=== PATIENT | female | born 1950 | race Caucasian/White ===

== ENCOUNTER 2016-12-26 08:13 | Inpatient (IN) | payer BC ==
[~2016-12-26] VITALS: Ht 157.5 cm; Wt 54.8 kg
--- NOTE | 2016-12-26 09:02 | RADRPT ---
PROCEDURE: US Lower extremity Venous. CLINICAL INDICATION: Left leg edema TECHNIQUE: Multiple sonographic images of the left lower extremity deep venous system was obtained utilizing grayscale, color-flow, compressive sonography and doppler imaging with augmentation. The images were reviewed on a PACS workstation. COMPARISON: None. FINDINGS: There is normal compressibility and flow within the left common femoral, femoral veins. The left popliteal vein, posterior tibial vein and peroneal vein are not compressible, consistent wi th DVT. RPTAT: AA IMPRESSION: DVT in the left popliteal vein and left calf veins. A call report was made and the findings discussed with Dr. Murcia at 12/26/2016 8:58:57 AM. .Oscar Kingsley MD, MD Date Time Electronically viewed and signed by .Oscar Kingsley MD, on 12/26/2016 09:01 .S/
[2016-12-26 10:52] VITALS: Ht 157.5 cm; Wt 54.8 kg
[2016-12-26 11:00] VITALS: BP 141/68; PULSE 87; RESP 20
[2016-12-26] MEDS ORDERED: ACETAMINOPHEN 325 MG TAB PO PRN (11:30)
[2016-12-26 12:27] LABS: BASOPHILS % 0.3 % (0.0-2.0); EOSINOPHILS % 0.3 % (0.0-7.0); HEMATOCRIT 37.7 % (37.0-47.0); HEMOGLOBIN 12.6 g/dl (12.0-16.0); LYMPHOCYTES # 1.3 10^3/ul (0.8-2.9); LYMPHOCYTES % 20.3 % (15.0-51.0); MEAN CORPUSCULAR HEMOGLOBIN 29.4 pg (29.0-33.0); MEAN CORPUSCULAR HGB CONC 33.4 g/dl (32.0-37.0); MEAN CORPUSCULAR VOLUME 87.9 fl (82.0-101.0); MEAN PLATELET VOLUME 9.2 fl (7.4-10.4); MONOCYTE # 0.6 10^3/ul (0.3-0.9); MONOCYTES % 8.5 % (0.0-11.0); NEUTROPHIL # 4.6 10^3/ul (1.6-7.5); NEUTROPHILS % 70.3 % (39.0-77.0); PLATELET COUNT 226 10^3/UL (140-415); RED BLOOD COUNT 4.29 10^6/ul (4.20-5.40); RED CELL DISTRIBUTION WIDTH 12.2 % (11.5-14.5); WHITE BLOOD COUNT 6.6 10^3/ul (4.8-10.8)
[2016-12-26 12:42] LABS: PROTIME 13.2 Sec (12.2-14.2)
[2016-12-26 12:43] LABS: PARTIAL THROMBOPLASTIN TIME 23.8 Sec (25.0-35.0)
[2016-12-26 12:51] LABS: ALBUMIN 4.1 g/dl (3.3-4.9); ALBUMIN/GLOBULIN RATIO 1.28; BILIRUBIN,INDIRECT 0.2 mg/dl (0-1.1); BILIRUBIN,TOTAL 0.2 mg/dl (0.2-1.3); CALCIUM 9.5 mg/dl (8.4-10.2); CREATININE 0.68 mg/dl (0.44-1.00); POTASSIUM 3.9 mmol/L (3.5-5.1); TOTAL PROTEIN 7.3 g/dl (6.1-8.1)
[2016-12-26] MEDS: ENOXAPARIN 60 MG/0.6 ML SYG SC SCH ×2 (12:54→22:04)
--- NOTE | 2016-12-26 14:06 | RADRPT ---
Vent Rate: 83 bpm RR Interval: 0 msec MS Interval: 154 msec QRS Duration: 88 msec QT Interval: 366 msec QTC Interval: 430 msec P-R-T [place]: 42 - 69 - 59 degrees Normal sinus rhythm Normal ECG Electronically Signed By: Renny Juarez [id number]
[2016-12-26 15:00] VITALS: BP 111/65; RESP 20
[2016-12-26] MEDS ORDERED: GLUCAGON 1 MG INJ IM PRN (15:30)
[2016-12-26] MEDS ORDERED: DEXTROSE 50% 50 ML SYRINGE IV PRN ×2 (15:30)
[2016-12-26] MEDS ORDERED: GLUCOSE GEL 15 GRAM TUBE BUCCAL PRN (15:30)
[2016-12-26] MEDS ORDERED: GLUCOSE GEL 15 GRAM TUBE PO PRN ×2 (15:30)
[2016-12-26] MEDS ORDERED: FENO160T13 PO (15:46)
[2016-12-26] MEDS ORDERED: WARFARIN 5 MG TAB PO ONE (17:00)
[2016-12-26] MEDS: INSULIN ASPART [NOVOLOG] 3 ML PEN SC SCH ×2 (17:44→20:36)
[2016-12-26 20:00] VITALS: BP 125/57; RESP 20
--- NOTE | 2016-12-26 21:28 | HP ---
DATE OF ADMISSION: 12/26/2016 CHIEF COMPLAINT: Swelling in the left leg for 8 days. HISTORY OF PRESENT ILLNESS: The patient is a 66-year-old female, who complains of swelling in the left leg for 8 days, somewhat painful from the knee down, unchanged. Pain is worse in the morning and improves somewhat with ambulation. Edema does not change during the day. The patient denies any redness, chest pain, shortness of breath, fever, chills, or night sweats. The patient has had no specific trauma. No prolonged immobilizations. The patient has no history of DVT. The patient had a duplex scan this morning, which showed DVT in the left lower extremity. The patient is being admitted for further management. PAST MEDICAL HISTORY: Hyperlipidemia, diabetes, anxiety. PAST SURGICAL HISTORY: Tubal ligation, hemorrhoids. MEDICATIONS: Fenofibrate 160 mg p.o. daily. ALLERGIES: NO KNOWN DRUG ALLERGIES. SOCIAL HISTORY: The patient denies any tobacco or alcohol use. She is and works in housekeeping at [employer]. FAMILY HISTORY: The patient's father at 80 from kidney failure. Her mother at 88 from stroke. The patient had 5 brothers, 1 at 46 from an [place], 1 at 26, he was killed, 3 brothers are alive and well. The patient has 2 sisters, 1 with breast cancer, 1 with hypertension. Has 2 daughters who are alive and well. REVIEW OF SYSTEMS: GENERAL: Patient denies any fever, chills, night sweats, or other general complaints. HEENT: Patient denies any headache, congestion, rhinorrhea, sore throat, or other HEENT complaints. RESPIRATORY: Patient denies any cough, wheeze, shortness of breath, or other respiratory complaints. CARDIOVASCULAR: Patient denies any chest pain, palpitations, dizziness, other cardiovascular symptoms. GASTROINTESTINAL: Patient denies any abdominal pain, nausea, vomiting, bright red blood per rectum, melena, or other GI symptoms. GENITOURINARY: Patient denies any dysuria, frequency, or other symptoms. NEUROLOGIC: Patient denies any numbness, tingling, weakness, or other focal neurologic symptoms. PHYSICAL EXAMINATION: GENERAL: Patient is a well-developed, well-nourished, female, in no acute distress. She appears nontoxic. HEENT: Normocephalic, atraumatic. Sclera anicteric. Oropharynx is clear. NECK: Neck is supple. No adenopathy, no thyromegaly, no bruits. LUNGS: Clear to auscultation. CARDIAC: Regular rate and rhythm. ABDOMEN: Bowel sounds are present. Abdomen is soft, nontender, nondistended. EXTREMITIES: Without cyanosis or clubbing. There is mild pitting edema on the left lower extremity. No erythema. NEUROLOGIC: Patient is alert and oriented times 3 with no focal neurologic findings. LABORATORY DATA: Duplex scan of left lower extremity showed DVT in the left popliteal and calf veins. EKG shows sinus rhythm with no acute changes. White count 6.6, hemoglobin 12.6, platelets 226. Sodium 141, potassium 3.9, chloride 105, bicarbonate 27, BUN 14, creatinine 0.68, glucose 226, AST 22, ALT 27, INR 1.0, PTT 23.8. IMPRESSION: 1. Left lower extremity deep vein thrombosis. 2. Diabetes. 3. Hyperlipidemia. PLAN: Admit to med-surg, start subcutaneous Lovenox, and concurrent Coumadin, sliding scale insulin with a diabetic diet, hold fenofibrate, monitor labs. Dictated By: Otto Moreno /fnt/bjc /Document#: [id number] TAMIR
[2016-12-27 02:00] VITALS: BP 101/59; RESP 20
[2016-12-27] MEDS: ACCU-CHEK XX SCH (02:00)
[2016-12-27 05:37] LABS: BASOPHILS % 0.4 % (0.0-2.0); EOSINOPHILS # 0.1 10^3/ul (0.0-0.5); EOSINOPHILS % 0.7 % (0.0-7.0); HEMATOCRIT 38.4 % (37.0-47.0); HEMOGLOBIN 12.9 g/dl (12.0-16.0); LYMPHOCYTES # 2.4 10^3/ul (0.8-2.9); LYMPHOCYTES % 33.9 % (15.0-51.0); MEAN CORPUSCULAR HEMOGLOBIN 29.9 pg (29.0-33.0); MEAN CORPUSCULAR HGB CONC 33.6 g/dl (32.0-37.0); MEAN CORPUSCULAR VOLUME 88.9 fl (82.0-101.0); MEAN PLATELET VOLUME 9.2 fl (7.4-10.4); MONOCYTE # 0.8 10^3/ul (0.3-0.9); MONOCYTES % 11.4 % (0.0-11.0); NEUTROPHIL # 3.9 10^3/ul (1.6-7.5); NEUTROPHILS % 53.5 % (39.0-77.0); PLATELET COUNT 242 10^3/UL (140-415); RED BLOOD COUNT 4.32 10^6/ul (4.20-5.40); WHITE BLOOD COUNT 7.2 10^3/ul (4.8-10.8)
[2016-12-27 05:55] LABS: INR 1.02; PROTIME 13.4 Sec (12.2-14.2)
[2016-12-27 06:19] LABS: CHOL/HDL RATIO 4.5 RATIO; CREATININE 0.76 mg/dl (0.44-1.00)
[2016-12-27 06:20] LABS: CALCIUM 9.1 mg/dl (8.4-10.2)
[2016-12-27] MEDS: INSULIN ASPART [NOVOLOG] 3 ML PEN SC SCH ×4 (08:00→21:00)
[2016-12-27 08:01] VITALS: BP 113/59; RESP 16
[2016-12-27] MEDS: ENOXAPARIN 60 MG/0.6 ML SYG SC SCH ×2 (08:38→21:22)
--- NOTE | 2016-12-27 12:22 | PN ---
Date/Time of Note Date/Time of Note DATE: 12/27/16 TIME: 12:16 Assessment/Plan VTE Prophylaxis VTE Prophylaxis Intervention: LMWH Lines/Catheters IV Catheter Type (from Nrs): Saline Lock Assessment/Plan Assessment/Plan A: LLE DVT DM hyperlipidemia P: coumadin 5mg today cont current rx monitor labs, adjust coumadin based on INR Subjective 24 Hr Interval Summary Free Text/Dictation Pt doing well. Decreased leg pain, no cp, sob, bleeding probs. Swelling in lt leg decreasing. Daughter and grandson at bedside. All questions answered. Exam/Review of Systems Vital Signs Vitals Vital Signs Date Time Temp Pulse Resp B/P Pulse Ox O2 Delivery O2 Flow Rate FiO2 12/27/16 08:01 98.1 78 16 113/59 97 Intake and Output 12/26/16 12/26/16 12/27/16 15:00 23:00 07:00 Intake Total 450 ml 850 ml Balance 450 ml 850 ml Exam gen- nad, nontoxic. lungs- CTA. heart- RRR. abd- +BS, soft, nontender. ext- trace edema LLE, varicose veins. Results Result Diagram: 12/27/16 0441 12/27/16 0441 Results 24 hrs Laboratory Tests Test 12/26/16 17:41 12/26/16 20:33 12/27/16 04:41 12/27/16 08:34 Bedside Glucose 133 142 139 White Blood Count 7.2 Red Blood Count 4.32 Hemoglobin 12.9 Hematocrit 38.4 Mean Corpuscular Volume 88.9 Mean Corpuscular Hemoglobin 29.9 Mean Corpuscular Hemoglobin Concent 33.6 Red Cell Distribution Width 12.0 Platelet Count 242 Mean Platelet Volume 9.2 Neutrophils % 53.5 Lymphocytes % 33.9 Monocytes % 11.4 H Eosinophils % 0.7 Basophils % 0.4 Nucleated Red Blood Cells % 0.0 Neutrophils # 3.9 Lymphocytes # 2.4 Monocytes # 0.8 Eosinophils # 0.1 Basophils # 0.0 Nucleated Red Blood Cells # 0.0 Prothrombin Time 13.4 Prothrombin Time Ratio 1.0 INR International Normalized Ratio 1.02 Sodium Level 141 Potassium Level 4.0 Chloride Level 108 Carbon Dioxide Level 28 Anion Gap 9 Blood Urea Nitrogen 20 Creatinine 0.76 Glucose Level 145 # Hemoglobin A1c 7.1 H Calcium Level 9.1 Triglycerides Level 267 H Cholesterol Level 151 LDL Cholesterol, Calculated 65 HDL Cholesterol 33 L Cholesterol/HDL Ratio 4.5 Test 12/27/16 11:51 Bedside Glucose 132 Medications Medications Current Medications Enoxaparin Sodium (Lovenox) 55 mg Q12 SC Last administered on 12/27/16t 08:38; Admin Dose 55 MG; Start 12/26/16 at 12:00 Acetaminophen (Tylenol Tab) 650 mg Q6H PRN PO PAIN AND OR ELEVATED TEMP; Start 12/26/16 at 11:30 Diagnostic Test (Pha) (Accu-Chek) 1 ea 02 XX ; Start 12/27/16 at 02:00 Miscellaneous Information 1 ea NOTE XX ; Start 12/26/16 at 15:30 Glucose (Glutose) 15 gm Q15M PRN PO DECREASED GLUCOSE; Start 12/26/16 at 15:30 Glucose (Glutose) 22.5 gm Q15M PRN PO DECREASED GLUCOSE; Start 12/26/16 at 15: 30 Dextrose (D50w Syringe) 25 ml Q15M PRN IV DECREASED GLUCOSE; Start 12/26/16 at 15:30 Dextrose (D50w Syringe) 50 ml Q15M PRN IV DECREASED GLUCOSE; Start 12/26/16 at 15:30 Glucagon (Glucagen) 1 mg Q15M PRN IM DECREASED GLUCOSE; Start 12/26/16 at 15:30 Glucose (Glutose) 15 gm Q15M PRN BUCCAL DECREASED GLUCOSE; Start 12/26/16 at 15 :30 Warfarin Sodium (Coumadin) 5 mg ONCE@17 ONCE PO ; Start 12/27/16 at 17:00; Stop 12/27/16 at 17:01 KONRAD ALTAMIRANO MD Dec 27, 2016 12:21
[2016-12-27 14:20] VITALS: BP 112/58; RESP 16
[2016-12-27] MEDS ORDERED: WARFARIN 5 MG TAB PO ONE (17:00)
[2016-12-27 20:45] VITALS: BP 129/62; RESP 16
[2016-12-28] MEDS: ACCU-CHEK XX SCH (01:47)
[2016-12-28 02:45] VITALS: BP 113/60; RESP 18
[2016-12-28 05:31] LABS: BASOPHILS % 0.4 % (0.0-2.0); EOSINOPHILS # 0.1 10^3/ul (0.0-0.5); EOSINOPHILS % 0.8 % (0.0-7.0); HEMATOCRIT 37.7 % (37.0-47.0); HEMOGLOBIN 12.7 g/dl (12.0-16.0); LYMPHOCYTES # 2.8 10^3/ul (0.8-2.9); LYMPHOCYTES % 39.1 % (15.0-51.0); MEAN CORPUSCULAR HEMOGLOBIN 29.7 pg (29.0-33.0); MEAN CORPUSCULAR HGB CONC 33.7 g/dl (32.0-37.0); MEAN CORPUSCULAR VOLUME 88.1 fl (82.0-101.0); MEAN PLATELET VOLUME 9.2 fl (7.4-10.4); MONOCYTE # 0.7 10^3/ul (0.3-0.9); NEUTROPHIL # 3.5 10^3/ul (1.6-7.5); NEUTROPHILS % 49.6 % (39.0-77.0); PLATELET COUNT 251 10^3/UL (140-415); RED BLOOD COUNT 4.28 10^6/ul (4.20-5.40); RED CELL DISTRIBUTION WIDTH 12.2 % (11.5-14.5); WHITE BLOOD COUNT 7.1 10^3/ul (4.8-10.8)
[2016-12-28 05:49] LABS: INR 1.03; PROTIME 13.5 Sec (12.2-14.2); PT RATIO 1.1
[2016-12-28 06:05] LABS: CALCIUM 9.4 mg/dl (8.4-10.2); CREATININE 0.74 mg/dl (0.44-1.00)
[2016-12-28] MEDS: INSULIN ASPART [NOVOLOG] 3 ML PEN SC SCH ×4 (08:00→20:19)
[2016-12-28 08:13] VITALS: BP 114/58; RESP 18
[2016-12-28] MEDS: ENOXAPARIN 60 MG/0.6 ML SYG SC SCH ×2 (09:19→20:20)
--- NOTE | 2016-12-28 12:30 | PN ---
Date/Time of Note Date/Time of Note DATE: 12/28/16 TIME: 12:27 Assessment/Plan VTE Prophylaxis VTE Prophylaxis Intervention: LMWH Lines/Catheters IV Catheter Type (from Nrs): Saline Lock Assessment/Plan Assessment/Plan A: DVT lt leg DM hyperlipidemia P: coumadin 7mg today cont lovenox cont other rx monitor labs Subjective 24 Hr Interval Summary Free Text/Dictation Pt doing pretty well. No cp, sob, dizziness, bleeding. Edema improved. Exam/Review of Systems Vital Signs Vitals Vital Signs Date Time Temp Pulse Resp B/P Pulse Ox O2 Delivery O2 Flow Rate FiO2 12/28/16 08:13 98.5 77 18 114/58 95 Intake and Output 12/27/16 12/27/16 12/28/16 15:00 23:00 07:00 Intake Total 1620 ml 950 ml Balance 1620 ml 950 ml Exam gen- nad, nontoxic lungs- cta heart- RRR abd- +BS, soft, nontender ext- trace edema lt leg Results Result Diagram: 12/28/16 0434 12/28/16 0434 Results 24 hrs Laboratory Tests Test 12/27/16 17:30 12/27/16 21:22 12/28/16 04:34 12/28/16 07:59 Bedside Glucose 146 135 148 White Blood Count 7.1 Red Blood Count 4.28 Hemoglobin 12.7 Hematocrit 37.7 Mean Corpuscular Volume 88.1 Mean Corpuscular Hemoglobin 29.7 Mean Corpuscular Hemoglobin Concent 33.7 Red Cell Distribution Width 12.2 Platelet Count 251 Mean Platelet Volume 9.2 Neutrophils % 49.6 Lymphocytes % 39.1 Monocytes % 10.0 Eosinophils % 0.8 Basophils % 0.4 Nucleated Red Blood Cells % 0.0 Neutrophils # 3.5 Lymphocytes # 2.8 Monocytes # 0.7 Eosinophils # 0.1 Basophils # 0.0 Nucleated Red Blood Cells # 0.0 Prothrombin Time 13.5 Prothrombin Time Ratio 1.1 INR International Normalized Ratio 1.03 Sodium Level 140 Potassium Level 4.0 Chloride Level 107 Carbon Dioxide Level 27 Anion Gap 10 Blood Urea Nitrogen 21 H Creatinine 0.74 Glucose Level 128 Calcium Level 9.4 Test 12/28/16 11:58 Bedside Glucose 135 Medications Medications Current Medications Enoxaparin Sodium (Lovenox) 55 mg Q12 SC Last administered on 12/28/16t 09:19; Admin Dose 55 MG; Start 12/26/16 at 12:00 Acetaminophen (Tylenol Tab) 650 mg Q6H PRN PO PAIN AND OR ELEVATED TEMP; Start 12/26/16 at 11:30 Diagnostic Test (Pha) (Accu-Chek) 1 ea 02 XX ; Start 12/27/16 at 02:00 Miscellaneous Information 1 ea NOTE XX ; Start 12/26/16 at 15:30 Glucose (Glutose) 15 gm Q15M PRN PO DECREASED GLUCOSE; Start 12/26/16 at 15:30 Glucose (Glutose) 22.5 gm Q15M PRN PO DECREASED GLUCOSE; Start 12/26/16 at 15: 30 Dextrose (D50w Syringe) 25 ml Q15M PRN IV DECREASED GLUCOSE; Start 12/26/16 at 15:30 Dextrose (D50w Syringe) 50 ml Q15M PRN IV DECREASED GLUCOSE; Start 12/26/16 at 15:30 Glucagon (Glucagen) 1 mg Q15M PRN IM DECREASED GLUCOSE; Start 12/26/16 at 15:30 Glucose (Glutose) 15 gm Q15M PRN BUCCAL DECREASED GLUCOSE; Start 12/26/16 at 15 :30 KONRAD ALTAMIRANO MD Dec 28, 2016 12:30
[2016-12-28 14:00] VITALS: BP 108/64; RESP 18
[2016-12-28] MEDS ORDERED: WARFARIN 7.5 MG TAB PO ONE (17:00)
[2016-12-28 20:43] VITALS: BP 111/59; RESP 18
[2016-12-29] MEDS: ACCU-CHEK XX SCH (02:00)
[2016-12-29 02:43] VITALS: BP 128/67; RESP 18
[2016-12-29 06:27] LABS: BASOPHILS % 0.4 % (0.0-2.0); EOSINOPHILS # 0.1 10^3/ul (0.0-0.5); EOSINOPHILS % 0.9 % (0.0-7.0); HEMATOCRIT 38.5 % (37.0-47.0); HEMOGLOBIN 13.2 g/dl (12.0-16.0); LYMPHOCYTES # 2.5 10^3/ul (0.8-2.9); LYMPHOCYTES % 36.8 % (15.0-51.0); MEAN CORPUSCULAR HEMOGLOBIN 30.4 pg (29.0-33.0); MEAN CORPUSCULAR HGB CONC 34.3 g/dl (32.0-37.0); MEAN CORPUSCULAR VOLUME 88.7 fl (82.0-101.0); MEAN PLATELET VOLUME 9.1 fl (7.4-10.4); MONOCYTE # 0.7 10^3/ul (0.3-0.9); MONOCYTES % 9.7 % (0.0-11.0); NEUTROPHIL # 3.6 10^3/ul (1.6-7.5); NEUTROPHILS % 51.9 % (39.0-77.0); PLATELET COUNT 248 10^3/UL (140-415); RED BLOOD COUNT 4.34 10^6/ul (4.20-5.40); RED CELL DISTRIBUTION WIDTH 11.9 % (11.5-14.5); WHITE BLOOD COUNT 6.9 10^3/ul (4.8-10.8)
[2016-12-29 07:05] LABS: INR 1.04; PROTIME 13.6 Sec (12.2-14.2); PT RATIO 1.1
[2016-12-29 07:07] LABS: CALCIUM 9.3 mg/dl (8.4-10.2); CREATININE 0.75 mg/dl (0.44-1.00); POTASSIUM 4.3 mmol/L (3.5-5.1)
[2016-12-29 07:27] VITALS: BP 107/56; RESP 18
[2016-12-29] MEDS: INSULIN ASPART [NOVOLOG] 3 ML PEN SC SCH ×3 (08:00→17:12)
[2016-12-29] MEDS: ENOXAPARIN 60 MG/0.6 ML SYG SC SCH ×2 (10:01→17:12)
--- NOTE | 2016-12-29 12:40 | PDOCDIS ---
Discharge Instructions DIAGNOSIS Discharge Diagnosis DVT left leg DM CONDITION Patient Condition: Good HOME CARE INSTRUCTIONS: Special Diet: 1800 ADA ACTIVITY: Activity Restrictions: Slowly Increase Activity FOLLOW UP/APPOINTMENTS Follow-up Plan f/u with Dr. Altamirano in 1 week KONRAD ALTAMIRANO MD Dec 29, 2016 12:40
[2016-12-29] MEDS ORDERED: METF500T4 PO (12:46)
[2016-12-29] MEDS ORDERED: ENOX60DI11 SC (12:46)
[2016-12-29] MEDS ORDERED: COU5 PO (12:57)
[2016-12-29 14:45] VITALS: BP 116/56; RESP 20
[2016-12-29] MEDS ORDERED: WARFARIN 7.5 MG TAB PO SCH (17:00)
--- NOTE | 2016-12-30 07:34 | DS ---
DATE OF ADMISSION: 12/26/2016 DATE OF DISCHARGE: 12/29/2016 FINAL DIAGNOSES: 1. Deep venous thrombosis, left lower extremity. 2. Diabetes. PROCEDURES: Duplex, left lower extremity. CONSULTATIONS: None. HISTORY OF PRESENT ILLNESS: This patient is a 66-year-old female who complained of swelling of the left leg for about 8 days, somewhat painful from her knee down. The pain was worse in the morning and improved somewhat with ambulation. Edema was unchanged during the day. The patient denied redness, chest pain, shortness of breath, fever, chills or night sweats. The patient had no specific trauma, no prolonged immobilizations, no history of DVT. A duplex scan revealed left lower extremity DVT. The patient was admitted for further management. ADMISSION PHYSICAL EXAMINATION: GENERAL APPEARANCE: Notable for the patient was in no acute distress, she appeared nontoxic. LUNGS: Clear to auscultation. CARDIAC: Exam was regular rate and rhythm. EXTREMITIES: Without cyanosis or clubbing. There was mild pitting edema of the left lower extremity. No erythema. ADMISSION DIAGNOSTIC DATA: Notable for: Duplex scan showing left lower extremity DVT in the left popliteal and calf vein. EKG with sinus rhythm and no acute changes. Hemoglobin was 12.6, platelets 226. Creatinine 0.68 and glucose was 226. HOSPITAL COURSE: 1. Left lower extremity DVT. The patient with finding of a left popliteal and calf vein DVT found on duplex scan. The patient was started on Lovenox and concurrently Coumadin. The patient did well with improvement of edema. No other symptoms. The patient had no evidence of any bleeding problems. Platelets remained stable during the hospitalization. The patient will continue concurrent Lovenox 55 mg subQ q.12 h. and Coumadin with adjusted dose based on INR until INR is therapeutic and then we will discontinue Lovenox. 2. Diabetes. A patient with history of diabetes. The patient was attempting dietary control. Glucose 220 on admission, improved with sliding scale insulin. The patient will be discharged on metformin twice a day. DISPOSITION: Discharged the patient home. DISCHARGE MEDICATIONS: 1. Lovenox 55 mg subQ q.12 h. 2. Coumadin 7.5 mg daily. 3. Metformin 500 mg b.i.d. DIET: ADA 1800 calorie. ACTIVITY: Avoid strenuous activities. Home Health to be arranged with administration of Lovenox and monitoring of INR. FOLLOWUP: Follow up with me in 1 week. Dictated By: Otto Moreno /fnt/caryn /Document#: [id number]
== END 2016-12-29 17:35 | disposition home health service (06) | DRG 301 ==
LOC: VAS 08:13 → PP2 10:01
PROVIDERS: ADMIT Internal Medicine; ATTEND Internal Medicine
DX: I82.432 Acute embolism and thrombosis of left popliteal vein (principal); E11.9 Type 2 diabetes mellitus without complications; I82.4Z2 Acute embolism and thrombosis of unspecified deep veins of left distal lower extremity; E78.5 Hyperlipidemia, unspecified
CPT/HCPCS: 80048; 80053; 80061; 82962; 83036; 85025; 85610; 85730; 93005; 93971; J1815

== ENCOUNTER → 2017-04-15 | Outpatient (CLI) | END | disposition home or self-care (01) ==

== ENCOUNTER → 2017-07-02 | Outpatient (CLI) | END | disposition home or self-care (01) ==

== ENCOUNTER → 2018-01-08 | Outpatient (CLI) | END | disposition home or self-care (01) ==

== ENCOUNTER → 2018-01-13 | Outpatient (CLI) | END | disposition home or self-care (01) ==

== ENCOUNTER → 2018-03-09 | Outpatient (CLI) | END | disposition home or self-care (01) ==

== ENCOUNTER 2018-07-30 22:55 | Emergency (ER) | payer BC ==
[~2018-07-30] VITALS: Ht 154.9 cm; Wt 52.5 kg
[~2018-07-30 22:55] MED LIST: COU5 PO; ENOX60DI11 SC; METF500T24 PO
[2018-07-30 23:00] VITALS: BP 158/78; PULSE 94; RESP 16; Ht 154.9 cm; Wt 52.5 kg
[2018-07-31] MEDS ORDERED: ONDANSETRON (ODT) 4 MG TAB ODT STA (00:13)
[2018-07-31] MEDS ORDERED: MECLIZINE 12.5 MG TAB PO ONE (00:30)
[2018-07-31] MEDS ORDERED: MECL-77 PO (01:06)
[2018-07-31] MEDS ORDERED: ONDA4TAB14 PO (01:06)
--- NOTE | 2018-07-31 01:11 | ERD ---
ER Documentation Chief Complaint Chief Complaint vertigo since 4AM w/ n/v/body aches HPI 67-year-old female past medical history of diabetes and hyperlipidemia presents for dizziness x1 day. She has history of vertigo and was given meclizine by her PCP about 6 months ago. She states that today she had dizziness but also had vomiting. She tried to take meclizine but she states that she threw up the medication. The vomiting has prevented of taking the medication. She was able to go to work today after feeling dizzy. She is able to ambulate. Denies any fevers or chills. Denies diarrhea. No other modifying factors noted. No other treatments tried at home. ROS All systems reviewed and are negative except as per history of present illness. Medications Home Meds Active Scripts Ondansetron (Ondansetron Odt) 4 Mg Tab.rapdis, 4 MG PO Q6H PRN for NAUSEA AND/OR VOMITING, #20 TAB Prov:MIREYA BROWN DO 07/31/18 Meclizine Hcl* (Meclizine Hcl*) 25 Mg Tablet, 25 MG PO Q8H PRN for DIZZINESS, #30 TAB Prov:MIREYA BROWN DO 07/31/18 Warfarin Sod (Coumadin) 5 Mg Tab, 7.5 MG PO DAILY for 30 Days, #45 TAB 2 Refills 1 1/2 tab (7.5 mg) daily or as directed by physician. Prov:KONRAD ALTAMIRANO MD 12/29/16 Metformin Hcl* (Metformin Hcl*) 500 Mg Tablet, 500 MG PO WITH BREAKFAST DINNE for 30 Days, #60 TAB Prov:KONRAD ALTAMIRANO MD 12/29/16 Enoxaparin Sodium (Enoxaparin Sodium) 60 Mg/0.6 Ml Syringe, 55 MG SC Q12 for 7 Days, #14 Prov:KONRAD ALTAMIRANO MD 12/29/16 Allergies Allergies: Coded Allergies: No Known Drug Allergy (Verified Allergy, Unknown, 12/07/07) PMhx/Soc History of Surgery: Yes (hysterectomy.12 years ago) Anesthesia Reaction: No Hx Neurological Disorder: No Hx Respiratory Disorders: No Hx Alcohol Use: No Hx Substance Use: No Hx Tobacco Use: No Smoking Status: Never smoker FmHx Family History: No coronary disease Physical Exam Vitals Vital Signs Date Temp Pulse Resp B/P (MAP) Pulse Ox O2 O2 Flow FiO2 Time Delivery Rate 5/3/19 97.9 94 16 158/78 98 23:00 (104) Physical Exam Const: No acute distress Head: Atraumatic, PERRLA, EOMI, no nystagmus noted on eye examination Eyes: Normal Conjunctiva ENT: Normal External Ears, Nose and Mouth. Neck: Full range of motion. No meningismus. Resp: Clear to auscultation bilaterally Cardio: Regular rate and rhythm, no murmurs, peripheral pulses intact Skin: No petechiae or rashes Ext: No cyanosis, or edema, 5 out of 5 strength bilateral upper and lower extremities Neur: Awake and alert, bilateral upper and lower tremors sensation intact Psych: Normal Mood and Affect Results 24 hrs Current Medications Medications Dose Sig/Joyce Start Time Status Last (Trade) Ordered Route PRN Stop Time Admin Dose Reason Admin Ondansetron 4 mg ONCE STAT 07/31/18 DC 07/31/18 HCl (Zofran ODT 00:13 07/31/18 00:23 Odt) 00:14 Meclizine 25 mg ONCE ONCE 07/31/18 DC 07/31/18 HCl PO 00:30 07/31/18 00:23 (Antivert) 00:31 Departure Diagnosis: Primary Impression: Dizziness Condition: Fair Patient Instructions: Dizziness (Vertigo) and Balance Problems: Ensuring Your Safety Referrals: KONRAD ALTAMIRANO MD (PCP) Additional Instructions: Llame al doctor MAANA y emerson aretha PABLO PARA DENTRO DE 1-2 RAYO.Dgale a la secretaria que nosotros le instruimos hacer esta pablo.Avise o llame si cuadra condicin se empeora antes de la pablo. Regresa aqui si peor o no mejor. MIREYA BROWN DO July 31, 2018 01:11
== END 2018-07-31 01:26 | disposition home or self-care (01) ==
LOC: FTE 22:55
DX: R42 Dizziness and giddiness (principal); R11.2 Nausea with vomiting, unspecified; E11.9 Type 2 diabetes mellitus without complications; Z79.01 Long term (current) use of anticoagulants; Z79.84 Long term (current) use of oral hypoglycemic drugs
CPT/HCPCS: 99283

== ENCOUNTER → 2018-08-05 | Outpatient (CLI) | payer BC ==
[~2018-08-05] MED LIST changes: +MECL-77 PO; +ONDA4TAB14 PO
== END | disposition home or self-care (01) ==
LOC: LAB 07:15
PROVIDERS: ATTEND Internal Medicine
DX: E11.9 Type 2 diabetes mellitus without complications (principal); E78.5 Hyperlipidemia, unspecified
CPT/HCPCS: 80053; 80061; 83036; 84443; 85025